=== PATIENT | female | born 1975 | race Hispanic/Latino ===

== ENCOUNTER 2016-06-23 20:41 | Inpatient (IN) | payer OTHER ==
[~2016-06-23] VITALS: Ht 162.6 cm; Wt 83.9 kg
[2016-06-23 21:43] LABS: ABSOLUTE BASOPHIL COUNT 0 /CUMM (0.0-0.2); ABSOLUTE EOSINOPHIL COUNT 0.2 /CUMM (0.0-0.7); ABSOLUTE GRANULOCYTE CT 4.8 /CUMM (1.4-6.5); ABSOLUTE LYMPH COUNT 2.2 /CUMM (1.2-3.4); ABSOLUTE MONOCYTE COUNT 0.6 /CUMM (0.10-0.60); BASOPHIL % 0.3 % (0.0-2.0); EOSINOPHIL % 2.1 % (0-5); HEMATOCRIT 34.1 % (37-47); MEAN CORPUSCULAR HGB CONC 33.2 G/DL (33.0-37.0); MEAN CORPUSCULAR VOLUME 87.5 FL (81.0-99.0); MEAN PLATELET VOLUME 10.8 FL (7.4-10.4); PLATELET COUNT 150 /CUMM (130-400); WHITE BLOOD CELL COUNT 7.8 /CUMM (4.8-10.8)
[2016-06-24 01:31] VITALS: BP 108/52
--- NOTE | 2016-06-24 06:46 | Labor & Delivery Summary ---
Delivery Summary Section: Section: repeat # (4) Indication: rpt/PROM Anesthesia: spinal Placenta: Placenta: normal, 3 vessel, manual Anesthesia: spinal Baby's Weight: 6/12 Apgars - 1 Min: 9 Apgars - 5 Min: 9 Additional Comments: BTL
--- NOTE | 2016-06-24 07:04 | History & Physical ---
General Information and HPI MD Statement: I have seen and personally examined RANJANA HAMILTON and documented this H&P. The patient is a 40 year old female at [38] weeks and [0] days gestation who presented with a chief complaint of [PROM]. History of Present Illness: 40yo lmp unknown edc 07/07/16 at 38w with PROM, amnisure positive. Previous c/s x 4. SGA. 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 EENTM: Reports: no symptoms. Cardiovascular: Reports: no symptoms. Respiratory: Reports: no symptoms. GI: Reports: no symptoms. Genitourinary: Reports: no symptoms. Musculoskeletal: Reports: no symptoms. Skin: Reports: no symptoms. Neurological/Psychological: Reports: no symptoms. Hematologic/Endocrine: Reports: no symptoms. Immunologic/Allergic: Reports: no symptoms. All Other Systems: Reviewed and Negative Date of LMP: 10/07/16 Exam & Diagnostic Data Last 24 Hrs of Vital Signs/I&O Vital Signs Date Time Temp Pulse Resp B/P Pulse O2 O2 Flow FiO2 Ox Delivery Rate 06/24 0131 108/52 Intake & Output 06/24 0800 06/24 0000 06/23 1600 Intake Total Output Total Balance Patient 185 lb Weight Obstetric Exam Wgt Gained During : 30 Pelvimetry: gynecoid Dilation (cm): 0 Effacement (%): 0 Station: -2 Membranes: SROM Fluid: clear Fundal Height (cm): 34 Multiple Gestation? No Contractions: none Infant #1 - FHR Baseline: 145 Category: 1 Estimated Weight: 6 Presentation: cephalic Patient for Induction? No Labs Blood Type & Rh: O pos Antibody Screen: imm Hct/Hgb & Platelets #1: Hct/Hgb & Platelets #2: Rubella: imm VDRL #1: nr VDRL #2: nr HbsAg: neg HIV #1: neg HIV #2 neg 1 Hr P Group B Strep: neg Initial Ultrasound: wnl Anatomy Ultrasound: wnl Ultrasound for EFW: 5-9 Genetic Testing: neg Last 24 Hrs of Labs/Amaury: Laboratory Tests 06/23/16 2100: CBC w Diff NO MAN DIFF REQ, RBC 3.90 L, MCV 87.5, MCH 29.0, RDW 15.0 H, MPV 10.8 H, Gran % 62.0, Lymphocytes % 27.6, Monocytes % 8.0, Eosinophils % 2.1, Basophils % 0.3, Absolute Granulocytes 4.8, Absolute Lymphocytes 2.2, Absolute Monocytes 0.6, Absolute Eosinophils 0.2, Absolute Basophils 0, PUBS MCHC 33.2, Urine Color YEL, Urine Clarity HAZY H, Urine pH 7.0, Ur Specific [place] 1.015, Urine Protein TRACE H, Urine Ketones NEG, Urine Nitrite NEG, Urine Bilirubin NEG, Urine Urobilinogen 0.2, Ur Leukocyte Esterase LARGE H, Ur Microscopic SEDIMENT EXAMINED, Urine RBC 15-25 H, Urine WBC 25-50 H, Ur Epithelial Cells MOD H, Urine Hemoglobin LARGE H, Urine Glucose NEG Microbiology 06/23 2099 URINE ROUT: Urine Culture - RECD Assessment/Plan Assessment/Plan: PROM at 38week previous c/sx4 multiparity, desires tubal ligation Rpt C/S & BTL As Ranked By This Provider Problem List: 1. Core Measures/Miscellaneous Venous Thromboembolism VTE Risk Factors: /, Surgery VTE Contraindications: No Contraindications VTE Prophylaxis Ordered Inpt: Mechanical (ALPS/TEDS) VTE Diagnosis: No VTE Type: NONE Beta Александр Is Beta Александр a Home Med? No Antibiotics Is Patient on Antibiotics? Yes If Yes: prophylaxis
--- NOTE | 2016-06-24 07:09 | Operative Report ---
Operative/Inv Procedure Report Surgery Date: 06/23/16 Name of Procedure: section and tubal sterilization Pre-Operative Diagnosis: 38 week premature rupture membranes multiparity Post-Operative Diagnosis: Same Estimated Blood Loss: 700 mL Surgeon/Vfx Artist: DEVON STRICKLAND MD,LOUANN Pena M.D. Anesthesia: spinal Operative/Procedure Note Note: The patient was brought to the operating room and placed on the OR table in the sitting position where she underwent spinal anesthetic without complication. Betadine boots were placed and activated. The patient was then placed into dorsal supine with a block under her right. A Vigil catheter was inserted and drained clear yellow urine. The abdomen was prepped and draped in usual sterile fashion. A Pfannenstiel skin incision was made through the old scar and taken down to the fascia. The fascia was nicked in the midline and extended bluntly and sharply. Glucose is replaced and elevated the fascia while the underlying rectus muscles were sharply. The rectus muscles are in the midline and the peritoneal cavity was entered bluntly. This incision was extended bilaterally. About a [place] bladder blade was inserted to protect the bladder from the operative field. A bladder flap was created using Metzenbaum scissors. A low transverse uterine incision was made with the scalpel and a liveborn male infant was delivered atraumatically and handed off to the waiting hand iii cutter. As then manually removed intact. Uterus was exteriorized and wiped clean with a wet lap sponge. The uterine incision was closed with 2 layers of 0 Polysorb. 3 sutures of 0 Polysorb were used for [id number] sutures for better hemostasis. Then paid to the right fallopian tube was grasped with a Elise elevated and a knuckle of tube was created using 2 free ties of 0 plain suture material. The tube was excised and coagulated. It was sent to pathology for verification. Essentially the same procedure is repeated on the left with good hemostasis on both sides. The uterine incision was inspected and noted to be hemostatic. The uterus was placed back into the abdominal cavity and the incisions and surgical sites were inspected and noted to be hemostatic. Rectus muscles were reapproximated using 0 Polysorb. She was closed using 0 Polysorb in a running nonlocking fashion. Subcutaneous tissues were coagulated were needed. Skin was closed with a 3-0 Polysorb in a subcuticular fashion. A dry sterile dressing was applied to the wound the fundus was expressed patient was transferred to recovery in good condition. All needle sponge and instrument counts were correct at end of procedure 2.
[2016-06-24 09:09] LABS: ABSOLUTE BASOPHIL COUNT 0 /CUMM (0.0-0.2); ABSOLUTE EOSINOPHIL COUNT 0 /CUMM (0.0-0.7); ABSOLUTE GRANULOCYTE CT 10.9 /CUMM (1.4-6.5); ABSOLUTE LYMPH COUNT 1.1 /CUMM (1.2-3.4); ABSOLUTE MONOCYTE COUNT 0.4 /CUMM (0.10-0.60); BASOPHIL % 0 % (0.0-2.0); EOSINOPHIL % 0.1 % (0-5); HEMATOCRIT 32.9 % (37-47); MEAN CORPUSCULAR HGB 29.5 PG (27.0-31.0); MEAN CORPUSCULAR HGB CONC 33.5 G/DL (33.0-37.0); MEAN CORPUSCULAR VOLUME 87.9 FL (81.0-99.0); MEAN PLATELET VOLUME 11.5 FL (7.4-10.4); RBC DISTRIBUTION WIDTH 14.8 % (11.5-14.5); RED BLOOD CELL CT 3.75 /CUMM (4.20-5.40)
[2016-06-24 09:56] LABS: GRANULOCYTE % 87.4 % (42.2-75.2); PLATELET COUNT 135 /CUMM (130-400); WHITE BLOOD CELL COUNT 12.5 /CUMM (4.8-10.8)
--- NOTE | 2016-06-25 16:55 | PN- General Surgery ---
Subjective Subjective: NO C/O Review of Systems: NEG Objective Vital Signs and I&Os Intake & Output 06/25 1600 06/25 0800 06/25 0000 06/24 1600 06/24 0800 06/24 0000 Intake Total Output Total Balance Patient 185 lb Weight Physical Exam: INCISION C/D/I EXT NT Assessment/Plan Assessment/Plan S/P C/S BTL POS2 STABLE CIRC DISCHARGE IN AM Problem List: 1. Core Measures/Miscellaneous Venous Thromboembolism VTE Risk Factors: /, Surgery VTE Contraindications: No Contraindications VTE Prophylaxis Ordered Inpt Mechanical (ALPS/TEDS) VTE Diagnosis: No VTE Type: NONE Beta Александр Is Beta Александр a Home Med? No Antibiotics Is Patient on Antibiotics? Yes If Yes: prophylaxis
[2016-06-25] MEDS ORDERED: DOCUSATE SODIU100 M3 PO (16:57)
[2016-06-25] MEDS ORDERED: IBUPROFEN800 M1 PO (16:57)
[2016-06-25] MEDS ORDERED: PERCOCET 5-3251 EACH PO (16:57)
--- NOTE | 2016-08-04 12:30 | Surgical Discharge Summary ---
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 Significant Other What is Your Primary Language? Com[place]an Review of Systems: Negative Hospital Course Course Attending Physician: DEVON STRICKLAND MD,LOUANN Primary Care Physician: PATIENT HAS NO PRIMARY CARE DR Hospital Course: Patient was admitted in active labor and was sent for a repeat . She underwent without complication was sent to recovery. On postoperative day #1 her Vigil was discontinued her diet was advanced and her activity was increased. Vital signs are stable and she was afebrile. Postoperative day #2 the patient continued to do well she was voiding and and ambulating and bonding well with her child. The infant was taken for circumcision and a small laceration was noted on the dorsal aspect of the penis. This was consulted with Dr. Dawood Awad who cleared the circumcision. Operative day #3 the patient was discharged home in good condition. Allergies: Coded Allergies: Penicillins (Intermediate, HIVES 01/02/16) Disposition Summary Disposition Principal Diagnosis: Term previous Additional Diagnosis: Previous Discharge Disposition: home or self care Discharge Instructions General Discharge Information Code Status: Full Code Patient's Diet: Regular Patient's Activity: Pelvic rest Follow-Up Instructions/Appts: 1 week Medications at Discharge Discharge Medications: Start taking the following new medications: Ibuprofen (Ibuprofen) 800 MG TABLET 800 Milligram ORAL EVERY SIX HOURS NEEDED as needed for UTERINE CRAMPING Qty = 36 No Refills Oxycodone HCl/Acetaminophen (Percocet 5-325 MG Tablet) 5 MG-325 MG TABLET 1-2 Tablet ORAL EVERY 4 HOURS NEEDED as needed for PAIN SCALE 4-6 ( MODERATE) Qty = 24 No Refills Docusate Sodium (Docusate Sodium) 100 MG CAPSULE 100 Milligram ORAL AT BEDTIME as needed for STOOL SOFTENER Qty = 60 No Refills
== END 2016-06-26 10:55 | DRG 540 ==
LOC: CBCO 20:41 → GNO 21:09
PROVIDERS: ADMIT Obstetrics & Gynecology
DX: O42.92 Full-term premature rupture of membranes, unspecified as to length of time between rupture and onset of labor (principal); Z3A.38 38 weeks gestation of pregnancy; Z37.0 Single live birth; Z30.2 Encounter for sterilization; O34.211 Maternal care for low transverse scar from previous cesarean delivery; N85.8 Other specified noninflammatory disorders of uterus
CPT/HCPCS: GNOP; 36415; 81001; 84112; 87086; 88302; J0131; J0690; J1200; J1885; J7120

== ENCOUNTER 2017-08-05 18:20 | Emergency (ER) | payer OTHER ==
[~2017-08-05] VITALS: Ht 162.6 cm; Wt 68.5 kg
[~2017-08-05 18:20] MED LIST: DOCUSATE SODIU100 M3 PO; IBUPROFEN800 M1 PO; PERCOCET 5-3251 EACH PO
[2017-08-05 18:30] VITALS: BP 122/61
[2017-08-05] MEDS ORDERED: IBUPROFEN400 M1 PO (18:43)
[2017-08-05] MEDS ORDERED: CYCLOBENZAPRINE10 M1 PO (18:43)
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
== END 2017-08-05 18:49 ==
LOC: ERH 18:20
DX: M62.838 Other muscle spasm (principal); V89.2XXA Person injured in unspecified motor-vehicle accident, traffic, initial encounter; Y92.410 Unspecified street and highway as the place of occurrence of the external cause